=== PATIENT | female | born 1950 | race Caucasian/White ===

== ENCOUNTER 2020-09-11 09:40 | Day surgery (SDC) | payer MEDICARE ==
[2020-09-04 12:13] LABS: CLARITY,URINE CLEAR (Clear); COLOR,URINE STRAW (Yellow); GLUCOSE, URINE NEGATIVE (Neg); KETONES,URINE NEGATIVE (Neg); LEUKOCYTE ESTERASE ,URINE NEGATIVE (Neg); NITRITES, URINE NEGATIVE (Neg); OCCULT BLOOD,URINE NEGATIVE (Neg); PROTEIN,URINE NEGATIVE (Neg); UROBILINOGEN,URINE 0.2 E.U/dL (0.2-1.0)
[2020-09-04 12:14] LABS: UA COLLECTION TYPE CLN CATCH MIDSTREAM
[2020-09-04 12:14] LABS: BASOPHILS # (AUTO) 0.1 X10'3 (0-0.2); BASOPHILS % (AUTO) 1.2 % (0-1); EOSINOPHILS # (AUTO) 0.2 X10'3 (0-0.9); EOSINOPHILS % (AUTO) 1.6 % (0-6); LYMPHOCYTES # (AUTO) 5.5 X10'3 (1.1-4.8); LYMPHOCYTES % (AUTO) 47.7 % (21-51); MEAN CORPUSCULAR VOLUME 93.7 FL (78-98); MEAN PLATELET VOLUME 8.3 FL (7.4-10.4); MONOCYTES # (AUTO) 1.1 X10'3 (0-0.9); MONOCYTES % (AUTO) 9.1 % (2-12); NEUTROPHILS # (AUTO) 4.7 X10'3 (1.8-7.7); NEUTROPHILS % (AUTO) 40.4 % (42-75); PRE OP HEMATOCRIT 40.3 % (35.0-45.0); PRE OP HEMOGLOBIN 12.9 g/dL (12.0-16.0); PRE OP PLATELET COUNT 345 X10'3 (140-440); RED CELL DISTRIBUTION WIDTH 13.6 % (11.5-14.5)
[2020-09-04 12:25] LABS: PRE OP PROTIME 10.5 SECONDS (9.0-12.0)
[2020-09-04 12:27] LABS: ALBUMIN 3.7 G/DL (3.4-5.0); ALKALINE PHOSPHATASE 98 IU/L (46-116); BLOOD UREA NITROGEN 13 MG/DL (7-18); BUN/CREATININE RATIO 15.9 (6.6-38.0); CALCIUM 9.3 MG/DL (8.5-10.1); CHLORIDE 105 MMOL/L (99-107); CREATININE 0.82 MG/DL (0.40-0.90); PRE OP ALT 21 U/L (30-65); PRE OP ANION GAP 6 (8-16); PRE OP AST 18 U/L (10-37); PRE OP BILIRUB, TOTAL 0.4 MG/DL (0.0-1.0); PRE OP GLUCOSE 74 MG/DL (70-104); PRE OP POTASSIUM 3.8 MMOL/L (3.4-5.1); PRE OP SODIUM 144 MMOL/L (135-145); TOTAL CARBON DIOXIDE 32.8 MMOL/L (24-32); TOTAL PROTEIN 7.5 G/DL (6.4-8.2); eGFR 69 ML/MIN
[~2020-09-11] VITALS: Ht 165.1 cm; Wt 109.1 kg
[2020-09-11] VITALS (12 sets, daily range): BP systolic 113–135; BP diastolic 56–97
[~2020-09-11 09:40] MED LIST: APIX5TAB3 PO; ASCO100T12 PO; CINN500C16; COGNIUM; COLL1POW3; DESV100T PO; FLEC50TA PO; FLUT16SP2 BOTHNARES; GABA-530 PO; HYDR12.5 PO; HYDR12.55 PO; MULT-1085 PO; OXYB-58 PO; PROBIO SLIM; TRAZ-251 PO; VITA400C67 PO; albuterol 2.5 MG/3 ML nebule NEB ONE; cefazolin/dext.iso 2gm/100ml 100 ML IV ONE; famotidine 20mg tablet PO ONE; ringers solution, lacted 1,000 ML IV SCH
[2020-09-11] MEDS ORDERED: MIDAZolam 1 MG/ML 5ML VIAL ONE (11:57)
[2020-09-11] MEDS ORDERED: fentaNYL/PF 50MCG/1 ML 2ML syringe ONE (11:57)
[2020-09-11] MEDS ORDERED: ROPIVAcaine 0.5% (5mg/ml) 30ml vial ONE (11:58)
[2020-09-11] MEDS ORDERED: cloNIDine hcl/PF 100mcg/ml inj ONE (12:00)
[2020-09-11] MEDS ORDERED: LIDOcaine 1%/PF 5ML 10 MG/ML VIAL ONE (12:00)
[2020-09-11] MEDS ORDERED: sevoflurane 250ml liquid IH ONE (12:00)
[2020-09-11] MEDS ORDERED: 0.9 % SODIUM CHLORIDE 10 ML VIAL ONE (12:04)
[2020-09-11] MEDS ORDERED: BUPIVAcaine/PF 7.5mg/ml (0.75%) 10ml vial ONE (12:04)
[2020-09-11] MEDS ORDERED: propofol inj 20 ML IV ONE (12:36)
[2020-09-11] MEDS ORDERED: ondansetron/PF 4mg/2ml inj ONE (12:55)
[2020-09-11] MEDS ORDERED: dexamethasone sod phosphate 4mg/ml inj. ONE (12:55)
[2020-09-11] MEDS ORDERED: bacitracin 15gm ointment TP ONE (13:36)
[2020-09-11] MEDS ORDERED: meperidine/PF 25mg/ml syringe IV PRN ×3 (14:05)
[2020-09-11] MEDS ORDERED: proCHLORperazine 10 MG/2 ml inj IV PRN (14:05)
[2020-09-11] MEDS ORDERED: ROPIVAcaine 0.2%/PF PUMP/bolus 545 ML POPLITEAL SCH (14:05)
[2020-09-11] MEDS ORDERED: ROPIVAcaine 0.2% (10 MG/5 ML) BOLUS INJECTION POPLITEAL PRN (14:05)
[2020-09-11] MEDS ORDERED: morphine 4 MG/ML inj SYRINge IV PRN (14:05)
[2020-09-11] MEDS ORDERED: ondansetron/PF 4mg/2ml inj IV PRN (14:05)
[2020-09-11] MEDS ORDERED: morphine 2 MG/ML inj. syringe IV PRN (14:05)
[2020-09-11] MEDS ORDERED: ringers solution, lacted 1,000 ML IV SCH (14:05)
[2020-09-11] MEDS ORDERED: acetaminophen 1,000mg/100ml IV 100 ML IV ONE (14:59)
--- NOTE | 2020-09-11 15:20 | NUR ---
Received from OR via [facility], accompanied by Anesthesiologist DR AWAD and report given by Anesthesiologist. PATIENT still very sleepy, NO SN/SX OF PAIN, V/S WNL, NEUROVASCULAR CHECKS INTACT-TOES ON LEFT FOOT PINK/WARM, +CAP REFILL, ON-Q TUBING PRESENT, 20G PIV LUE-LR RUNNING AT 100ML/HR,
--- NOTE | 2020-09-11 17:30 | NUR ---
PATIENT A&OX4, PAIN TOLERABLE-EDUCATED REGARDING USE OF ON-QPAIN BALL AND GIVEN HANDOUT REGARDING CARE AND D/C INSTRUCTIONS, PT ALSO HAS PAIN MEDS AT HOME, V/S WNL, NEUROVASCULAR CHECKS INTACT-LLE TOES PINK WARM +CAP REFILL, 20G PIV D/C WITH NO COMPLICATIONS OBSERVED, DRESSING TO LEFT FOOT-CDI, SCD OFF. ALSO, EDUCATED PT AND FAMILY ABOUT NEED TO WEAR CPAP FOR THE NEXT 24 HOURS WHEN LAYING DOWN/SLEEPING. I HAVE REVIEWED D/C INSTRUCTIONS WITH PATIENT AND FAMILY AND THEY HAVE VERBALIZED UNDERSTANDING. PATIENT D/C HOME WITH ALL BELONGINGS AND FAMILY GAVE TRANSPORT HOME.
== END 2020-09-11 17:30 | disposition home or self-care (01) ==
LOC: PAS 09:40
PROVIDERS: ATTEND Podiatrist Foot & Ankle Surgery
DX: M19.072 Primary osteoarthritis, left ankle and foot (principal); J45.909 Unspecified asthma, uncomplicated; G47.30 Sleep apnea, unspecified; F32.9 Major depressive disorder, single episode, unspecified; F41.9 Anxiety disorder, unspecified; E21.3 Hyperparathyroidism, unspecified; M18.12 Unilateral primary osteoarthritis of first carpometacarpal joint, left hand; E66.9 Obesity, unspecified; Z68.41 Body mass index [BMI] 40.0-44.9, adult; Z91.013 Allergy to seafood; G89.18 Other acute postprocedural pain; Z88.5 Allergy status to narcotic agent; Z88.8 Allergy status to other drugs, medicaments and biological substances; Z88.2 Allergy status to sulfonamides; Z88.1 Allergy status to other antibiotic agents; Z88.0 Allergy status to penicillin; Z79.899 Other long term (current) drug therapy; Z98.890 Other specified postprocedural states; Z96.651 Presence of right artificial knee joint; Z98.51 Tubal ligation status; Z90.49 Acquired absence of other specified parts of digestive tract; Z90.710 Acquired absence of both cervix and uterus; Z90.81 Acquired absence of spleen; Z87.891 Personal history of nicotine dependence; Z20.822 Contact with and (suspected) exposure to COVID-19; Z79.01 Long term (current) use of anticoagulants
CPT/HCPCS: 20900; 28730; 36415; 64446; 64447; 73620; 76000; 76937; 76942; 80053; 81003; 82948; 85025; 85610; 85730; 94640; A6223; C1713; J0131; J0735; J1100; J2250; J2405; J2704; J2795; J3010; J3490; J7120; U0003; A4215; A4618; A6253; A6449; A7000

== ENCOUNTER 2025-04-16 11:32 | Outpatient (CLI) | payer MEDICARE, OTHER ==
[~2025-04-16 11:32] MED LIST changes: -albuterol 2.5 MG/3 ML nebule NEB ONE; -cefazolin/dext.iso 2gm/100ml 100 ML IV ONE; -famotidine 20mg tablet PO ONE; -ringers solution, lacted 1,000 ML IV SCH
--- NOTE | 2025-04-16 18:19 | RADIOLOGY REPORT ---
EXAM: ESOPHAGRAM HISTORY: DYSPHAGIA, UNSPECIFIED FLUORO TIME: 1.6 minutes. AIR KERMA: 79.76 mGy TECHNIQUE: The patient was positioned upright and prone at the fluoroscopy unit and instructed to swallow both thick and thin barium contrast material under fluoroscopic examination. FINDINGS: Normal swallow reflex. No aspiration. There are minimal tertiary distal esophageal contractions. There is a moderate-sized combined axial and paraesophageal hiatal hernia which is not reducible. There is mild gastroesophageal reflux demonstrated.. No mucosal ulcerations seen throughout the esophagus. There was evidence of slight retention of contrast into the hernia prior to transit to the stomach. IMPRESSION: 1. 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
== END 2025-04-16 23:59 | disposition home or self-care (01) ==
LOC: RAD 11:32
PROVIDERS: ATTEND Internal Medicine Gastroenterology
DX: R13.10 Dysphagia, unspecified (principal)
CPT/HCPCS: 74220